=== PATIENT | male | born 1985 | race Caucasian/White ===

== ENCOUNTER 2017-03-01 14:44 | Emergency (ER) | payer BC ==
[~2017-03-01] VITALS: Ht 170.2 cm; Wt 72.1 kg
[~2017-03-01 14:44] MED LIST: PRI20 PO
[2017-03-01 15:29] LABS: BASOPHIL % 0.4 % (0-2); PLATELET COUNT 183 x10^3mcL (130-400); RED CELL DISTRIBUTION WIDTH 12.9 % (11.5-14.5)
[2017-03-01 15:51] LABS: CALCIUM 8.4 mg/dL (8.5-10.1); CARBON DIOXIDE 25.5 mmol/L (21-32); CHLORIDE SERUM 101 mmol/L (98-107); CREATININE SERUM 0.9 mg/dL (0.7-1.3); GFR1 > 60 mL/min; GLUCOSE SERUM 96 mg/dL (74-106); POTASSIUM SERUM 3.5 mmol/L (3.5-5.1); SODIUM SERUM 137 mmol/L (136-145)
[2017-03-01 15:55] LABS: ALBUMIN 3.9 g/dL (3.4-5.0); ALKALINE PHOSPHATASE 93 U/L (46-116); ALT/SGPT 60 U/L (16-63); AMYLASE 62 U/L (25-115); AST/SGOT 28 U/L (15-37); BILIRUBIN TOTAL 0.9 mg/dL (0.20-1.00); LIPASE 108 IU/L (73-393); TOTAL PROTEIN, SERUM 7.9 g/dL (6.4-8.2)
[2017-03-01 16:52] VITALS: BP 117/71
== END 2017-03-01 16:52 | disposition home or self-care (01) ==
LOC: ED 14:44
PROVIDERS: Specialist
DX: R10.13 Epigastric pain (principal); R19.7 Diarrhea, unspecified
CPT/HCPCS: 83880; J7030; Q0092

== ENCOUNTER 2017-04-03 22:47 | Emergency (ER) | payer BC ==
[2017-04-03 22:54] VITALS: BP 136/78
== END 2017-04-04 00:37 | disposition home or self-care (01) ==
LOC: ED 22:47
DX: H10.9 Unspecified conjunctivitis (principal)

== ENCOUNTER 2017-04-05 10:38 | Emergency (ER) | payer BC ==
[~2017-04-05] VITALS: Ht 170.2 cm; Wt 72.3 kg
[2017-04-05 12:41] VITALS: BP 128/75
== END 2017-04-05 13:03 | disposition home or self-care (01) ==
LOC: ED 10:38
DX: H10.31 Unspecified acute conjunctivitis, right eye (principal); R03.0 Elevated blood-pressure reading, without diagnosis of hypertension